=== PATIENT | female | born 1960 | race Caucasian/White ===

== ENCOUNTER → 2018-09-10 | Emergency (ER) | payer BC ==
[~2018-09-10] VITALS: Wt 78.1 kg
[~2018-09-10] MED LIST: CARB15DR50 BOTH EARS; FLUT9.9S NASAL; IBUP-1542 PO
--- NOTE | 2018-09-10 19:06 | ERD ---
ER Documentation Chief Complaint Chief Complaint SORE THROAT X 1 WEEK HPI Patient is a 58-year-old female with no medical problems who presents with a sore throat. She says "gets tight and dry". She said the symptoms for the past 1 week. She feels like she has a head cold. She reports drainage in her ears feel plugged. She has congestion. She is speaking in full sentences. She has no fevers. She does report high blood pressure over the past 2 days. Upon review of old medical records this is the patient's first visit to the emergency department. She does have a primary doctor. ROS All systems reviewed and are negative except as per history of present illness. Medications Home Meds Active Scripts Fluticasone Propionate (Flonase Allergy Relief) 9.9 Ml [facility].susp, 1 SPRAY NASAL BID, #1 BOTTLE TO EACH NOSTRIL Prov:ALEM SALAS MD 09/10/18 Ibuprofen* (Motrin*) 600 Mg Tab, 600 MG PO Q6H PRN for PAIN AND OR ELEVATED TEMP, #30 TAB Prov:ALEM SALAS MD 09/10/18 Carbamide Peroxide* (Debrox*) 6.5% - 15 Ml Drops, 10 DROP BOTH EARS BID, #1 BOTTLE Prov:ALEM SALAS MD 09/10/18 Allergies Allergies: Coded Allergies: No Known Allergy (Unverified , 09/10/18) PMhx/Soc Medical and Surgical Hx: pt denies Medical Hx, pt denies Surgical Hx Hx Alcohol Use: No Hx Substance Use: No Hx Tobacco Use: No Smoking Status: Never smoker FmHx Family History: coronary disease Physical Exam Vitals Vital Signs Date Temp Pulse Resp B/P (MAP) Pulse Ox O2 O2 Flow FiO2 Time Delivery Rate 09/10/18 99.1 81 20 180/84 99 17:36 (116) Physical Exam Const: No acute distress Head: Atraumatic Eyes: Normal Conjunctiva ENT: Normal External Ears, Nose and Mouth. Neck: Full range of motion. No meningismus. No stridor over the neck Resp: Clear to auscultation bilaterally Cardio: Regular rate and rhythm, no murmurs Abd: Soft, non tender, non distended. Normal bowel sounds Skin: No petechiae or rashes Back: No midline or flank tenderness Ext: No cyanosis, or edema Neur: Awake and alert Psych: Normal Mood and Affect Procedures/MDM Patient is a 58-year-old female who presents with sore throat. There is no sign of oropharyngeal swelling or erythema. There is no pus on the tonsils. There is no stridor over the neck. She does have some earwax in the bilateral tympanic membranes. I believe she likely has a viral illness possibly causing postnasal drip that could cause a sore throat. She will be given a prescription for Flonase. She will be given Debrox for her cerumen. She can take ibuprofen for pain or inflammation. She should follow-up with her primary doctor within 1 week. She can return sooner for any worsening symptoms. I do not believe she requires further workup or admission in the hospital at this time. Departure Diagnosis: Primary Impression: HTN (hypertension) Hypertension type: essential hypertension Qualified Codes: I10 - Essential (primary) hypertension Additional Impression: Sore throat Condition: Fair Patient Instructions: Self-Care for Sore Throats, High Blood Pressure (Hypertension) Referrals: Your doctor Additional Instructions: Call your primary care doctor TOMORROW for an appointment during the next 1 WEEK.Tell the [employer] board [employer] commissioners that you were referred from this facility.See the doctor sooner or return here if your condition worsens before your appointment time. ALEM SALAS MD Sep 10, 2018 19:06
[2018-09-10 19:28] VITALS: BP 173/84; PULSE 74; RESP 16
== END | disposition home or self-care (01) ==
LOC: FTE 17:34
DX: I10 Essential (primary) hypertension (principal)
CPT/HCPCS: 99282